=== PATIENT | female | born 1965 ===

== ENCOUNTER 2017-10-12 19:15 | Inpatient (IN) | payer MEDICAID ==
--- NOTE | 2017-10-12 19:30 | C.PDOC ---
History Of Present Illness Patient presents to the ER requesting detox from ETOH, last use [employer]. Patient states she drinks everyday. Denies suicidal ideation or homicidal ideation. Time Seen by Provider: 10/12/17 19:30 Chief Complaint (Nursing): Substance Abuse History Per: Patient History/Exam Limitations: no limitations Onset/Duration Of Symptoms: Hrs Current Symptoms Are (Timing): Still Present Suicide/Self Injury Attempted (Context): None Modifying Factor(s): Alcohol Severity: None Pain Scale Rating Of: 0 Associated Symptoms: denies: Depression, Suicidal Thoughts, Other (Homicidal ideation) Involuntary Hold By: None Recent travel outside of the [place]: No Additional History Per: Patient Past Medical History Reviewed: Historical Data, Nursing Documentation, Vital Signs Vital Signs: Last Vital Signs Temp 98.7 F 10/12/17 22:55 Pulse 82 10/12/17 22:55 Resp 20 10/12/17 22:55 BP 124/63 10/12/17 22:55 Pulse Ox 98 10/12/17 22:55 - Medical History PMH: Hyperthyroidism Surgical History: Back Surgery, Cholecystectomy Family History: States: No Known Family Hx - Social History Hx Alcohol Use: Yes Hx Substance Use: No Review Of Systems Constitutional: Negative for: Fever, Chills Eyes: Negative for: Vision Change ENT: Negative for: Throat Pain Cardiovascular: Negative for: Chest Pain, Palpitations Respiratory: Negative for: Cough, Shortness of Breath Gastrointestinal: Negative for: Nausea, Vomiting Genitourinary: Negative for: Dysuria Musculoskeletal: Negative for: Back Pain Skin: Negative for: Rash Neurological: Negative for: Weakness, Numbness Psych: Positive for: Anxiety. Negative for: Suicidal ideation Physical Exam - Physical Exam Appears: Non-toxic Skin: Warm, Dry Head: Normacephalic Eye(s): bilateral: Normal Inspection Oral Mucosa: Moist Neck: Supple Chest: Symmetrical, No Tenderness Cardiovascular: Rhythm Regular Respiratory: No Rales, No Rhonchi, No Wheezing Gastrointestinal/Abdominal: Soft, No Tenderness Rectal: Maroon Stool Back: Normal Inspection Extremity: Normal ROM Extremity: Bilateral: Atraumatic Pulses: Left Dorsalis Pedis: Normal, Right Dorsalis Pedis: Normal Neurological/Psych: Oriented x3, Normal Speech Gait: Steady ED Course And Treatment - Laboratory Results Result Diagrams: 10/12/17 19:45 10/12/17 19:45 O2 Sat by Pulse Oximetry: 97 (Room air) Pulse Ox Interpretation: Normal Progress Note: Blood work and urinalysis ordered. Crisis notified. Patient states she has very heavy periods, denies any rectal bleeding. Patient may benefit from a medical and ob/syn consult Disposition Discussed With : Alex Trinh Comment: accepted the pt on his service and took over the care at 1:23 AM Doctor Will See Patient In The: Hospital Counseled Patient/Family Regarding: Studies Performed, Diagnosis - Disposition Disposition: HOSPITALIZED Disposition Time: 19:30 Condition: FAIR Forms: [facility] ([place]) - POA Present On Arrival: None - Clinical Impression Clinical Impression: Alcohol abuse, Alcohol intoxication, Chronic anemia - Scribe Statement The provider has reviewed the documentation as recorded by the Scribmaxwell Ceja All medical record entries made by the Scribe were at my direction and personally dictated by me. I have reviewed the chart and agree that the record accurately reflects my personal performance of the history, physical exam, medical decision making, and the department course for this patient. I have also personally directed, reviewed, and agree with the discharge instructions and disposition. Decision To Admit - Pt Status Changed To: Hospital Disposition Of: Inpatient - Admit Certification Admit to Inpatient:: After my assessment, the patient will require hospitalization for at least two midnights. This is because of the severity of symptoms shown, intensity of services needed, and/or the medical risk in this patient being treated as an outpatient. - InPatient: Physician Admission Certification: I certify that this patient requires 2 or more midnights of care for the following reason:: After my assessment, the patient will require hospitalization for at least two midnights. This is because of the severity of symptoms shown, intensity of services needed, and/or the medical risk in this patient being treated as an outpatient. - . Bed Request Type: Detox Admitting Physician: Alex Trinh Patient Diagnosis: Alcohol abuse, Alcohol intoxication, Chronic anemia
[2017-10-12 19:53] LABS: BASO # 0.1 K/uL (0.0-0.2); BASO % 1.2 % (0.0-2.0); EOS # 0.1 K/uL (0.0-0.7); EOS % 1.4 % (0.0-4.0); HEMOGLOBIN 7.2 g/dL (11.0-16.0); LYMPH # 1.9 K/uL (1.0-4.3); LYMPH % 44.6 % (20.0-40.0); MEAN CORPUSCULAR HEMOGLOBIN 23.3 pg (27.0-31.0); MEAN CORPUSCULAR HGB CONC 31.1 g/dL (33.0-37.0); MEAN PLATELET VOLUME 7.7 fL (7.2-11.7); MONO # 0.4 K/uL (0.0-0.8); MONO % 10.2 % (0.0-10.0); NEUT # 1.8 K/uL (1.8-7.0); NEUT % 42.6 % (50.0-75.0); NRBC % 0.1 % (0.0-2.0); RBC 3.09 Mil/uL (3.80-5.20); RED CELL DISTRIBUTION WIDTH 24.5 % (11.5-14.5); WHITE BLOOD COUNT 4.2 K/uL (4.8-10.8)
[2017-10-12 19:56] LABS: HCG,QUALITATIVE URINE NEGATIVE (NEGATIVE)
[2017-10-12 19:58] LABS: SQUAMOUS EPITHIAL 2 /hpf (0-5); URINE BACTERIA RARE (<OCC); URINE BILIRUBIN NEGATIVE (NEGATIVE); URINE BLOOD NEGATIVE (NEGATIVE); URINE CLARITY Clear (Clear); URINE COLOR Yellow (YELLOW); URINE GLUCOSE (UA) NORMAL (Normal); URINE LEUKOCYTE ESTERASE 2+ Leu/uL (Negative); URINE PROTEIN 2+ mg/dL (NEGATIVE); URINE UROBILINOGEN NORMAL mg/dL (0.2-1.0)
[2017-10-12 20:11] LABS: BARBITURATES, UR NEGATIVE (NEGATIVE); BENZODIAZEPINES, UR NEGATIVE (NEGATIVE); OPIATES, UR NEGATIVE (NEGATIVE); PHENCYCLIDINE, UR NEGATIVE (NEGATIVE)
[2017-10-12 20:14] LABS: ALB/GLOB RATIO 1.2 (1.0-2.1); ALT/SGPT 26 U/L (9-52); AST/SGOT 37 U/L (14-36); BLOOD UREA NITROGEN 12 mg/dL (7-17); CALCIUM 8.3 mg/dl (8.6-10.4); GFR AFRICAN-AMERICAN > 60; GFR NON-AFRICAN AMERICAN > 60
[2017-10-12] MEDS ORDERED: Sodium Chloride 0.9% 1,000 ML IV ONE (23:17)
--- NOTE | 2017-10-13 02:45 | PCM.BM ---
<Filomena Guerrier - Last Filed: 10/13/17 02:44> Treatment Plan Problems - Problems identified on initial assessmt Ineffective Coping Skills Date Initiated: 10/13/17 Time Initiated: 02:45 Assessment reference: NA Status: Active Treatment assets and liabiliti Patient Assests: ADL independent Patient Liabilities: substance abuse - Milieu Protocol Maintain good personal hygiene: daily Encourage regular showers, daily Remind patient to perform daily oral care, other Assist patient to perform ADL's Maintain personal safety: every shift Educate patient to report safety concerns to staff, every shift Monitor environment for contraband/sharps Medication safety: Monitor for expected outcome, potential side effects: every shift, Assess barriers to learning: every shift, Assess readiness for medication education: every shift <Alex Trinh - Last Filed: 10/13/17 22:15> - Diagnosis (1) Alcohol use disorder, severe, dependence Status: Acute Interventions: 10/13/17 22:15 * Assess 7x/week regarding severity of withdrawal * Educate regarding risks, benefits, side effects and alternatives of medications * Use Motivational Interviewing for abstinence * Use CBT for relapse prevention * Medication management for withdrawal symptoms * Encourage medication assisted treatment *
[2017-10-13] MEDS: Multiple Vitamins Tab PO SCH (10:35)
[2017-10-13] MEDS: Pantoprazole 40 mg EC Tab PO SCH (10:35)
[2017-10-13] MEDS: Levothyroxine 150 MCG TAB PO SCH (11:13)
--- NOTE | 2017-10-13 14:13 | PCM.PSYCH ---
Initial Psychiatric Evaluation - Initial Psychiatric Evaluation Type of Admission: Voluntary Legal Status: Capacity Chief Complaint (in patient's own words): "Alcohol" History of Present Illness and Precipitating Events: The patient is a 52 year old female who is unemployed. She came to [facility] ED requesting detox from alcohol. The patient states that she drinks 1 bottle of vodka a day and that her drinking has gotten worse over the last month. She states that she has also been depressed over the last two- three weeks. 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 She has never attended a detox or rehab program for alcohol. The patient states that she attended detox for heroin abuse in [place] however she has been clean for 11 years. Smokes 1/2 ppd cigarettes She has wdw symptoms Past Medical history: hypothyroidism, gastritis Family history: denies Social: [place] two roommates, single Past psychiatric history: denies Current Medications: Active Medications Generic Name Dose Route Start Last Admin Trade Name Freq PRN Reason Stop Dose Admin Acetaminophen 650 mg 10/13/17 10:19 Tylenol 325mg Tab PO Q6 PRN Pain, moderate (4-7) Chlordiazepoxide 25 mg 10/13/17 02:29 10/13/17 02:36 Librium PO 25 mg Q4H PRN Administration Alcohol Withdrawal Chlordiazepoxide 25 mg 10/13/17 06:00 10/13/17 11:13 Librium PO 10/17/17 05:59 25 mg Q6H GUILHERME Administration Taper Clonidine HCl 0.1 mg 10/13/17 02:30 10/13/17 10:35 Catapres PO 0.1 mg Q6 PRN Administration Symptoms of alcohol withdrawl Folic Acid 1 mg 10/13/17 10:30 10/13/17 10:35 Folic Acid PO 1 mg DAILY GUILHERME Administration Hydroxyzine HCl 25 mg 10/13/17 02:25 Atarax PO Q6 PRN Anxiety Levothyroxine Sodium 150 mcg 10/13/17 10:30 10/13/17 11:13 Synthroid PO 150 mcg DAILY@0630 GUILHERME Administration Multivitamins 1 tab 10/13/17 10:30 10/13/17 10:35 Hexavitamin PO 1 tab DAILY GUILHERME Administration Pantoprazole Sodium 40 mg 10/13/17 10:30 10/13/17 10:35 Protonix Ec Tab PO 40 mg DAILY GUILHERME Administration Thiamine HCl 100 mg 10/13/17 10:30 10/13/17 10:35 Vitamin B1 Tab PO 100 mg DAILY GUILHERME Administration Trazodone HCl 50 mg 10/13/17 22:00 Desyrel PO HS PRN Insomnia Past Psychiatric History - Past Psychiatric History Previous Treatment History: None Pertinent Medical Hx (Current Medical&Sleep Prob, Allergies): Allergies Allergy/AdvReac Type Severity Reaction Status Date / Time No Known Allergies Allergy Verified 10/12/17 19:24 Levothyroxine Sodium 150 mcg PO DAILY 10/12/17 Omeprazole 20 mg PO DAILY 10/12/17 Review of Systems - Neurological Neurological: Tremor - Psychiatric Psychiatric: Abnormal Sleep Pattern, Anxiety, Depression, Difficulty Concentrating, Suicidal Ideation. absent: Hallucinations, Homicidal Ideation Mental Status Examination - Personal Presentation Personal Presentation: Looks stated age - Affect Affect: Constricted - Motor Activity Motor Activity: Calm - Reliability in Providing Information Reliability in Providing Information: Good - Speech Speech: Organized - Mood Mood: Anxious - Formal Thought Process Formal Thought Process: No Impairment - Cognitive Functions Orientation: Person, Place, Situation, Time Sensorium: Alert Attention/Concentration: Attentive Estimate of Intelligence: Average Judgement: Intact, as evidence by: Insight regarding need for hospitalization Memory: Recent intact, as evidence by: Ability to recall events of the day, Remote intact, as evidenced by: Abilit to recall sig. life events - Risk Risk: Withdrawal, Diminished functioning - Strength & Assets Inventory Strength & Assets Inventory: Cooperative - Limitations Limitations: Living alone DSM 5 DX - DSM 5 DSM 5 Diagnosis: Alcohol withdrawal Alcohol use d/o - severe Depressive d/o - unspecified - Recommended/Plan of Treatment Treatment Recommendations and Plan of Treatment: Taper with Librium remeron for depression Gabapentin for augmentation if needed As needed medications All risks, benefits and alternatives of the meds discussed, and the pt agreed and understood. Attend groups and activities Supportive therapy and psychoeducation [place] for abstinence CBT for relapse prevention and depression Encourage MAT Refer to rehab or IOP, and self-help groups Multivitamins/Thiamine/Folate Smoking cessation with [place] Nicotine patch if needed Consider antidepressants following alcohol detox Monitor for symptoms of depression 34 min Projected ELOS: 5-6 days Prognosis: good w treatment - Smoking Cessation Smoking Cessation Initiated: Yes
[2017-10-14] MEDS: Levothyroxine 150 MCG TAB PO SCH (06:44)
[2017-10-14] MEDS: Pantoprazole 40 mg EC Tab PO SCH (09:59)
[2017-10-14] MEDS: Multiple Vitamins Tab PO SCH (09:59)
--- NOTE | 2017-10-14 12:31 | PCM.PYCHPN ---
Psychiatric Progress Note - Psychiatric Progress Note Patient seen today, length of contact: 16 min Patient Chief Complaint: "Tired" Problems Identified/Issues Discussed: The pt is seen, chart reviewed, case discussed with staff. Support and psychoeducation given, CBT and ID used briefly No new symptoms reported, improving slowly and needs more time No SEs from medications, risks discussed. After care discussed Medication Change: Yes (detox changes daily) Medical Record Reviewed: Yes Mental Status Examination - Cognitive Function Orientation: Person, Place, Situation, Time Memory: Intact Attention: WNL Concentration: Poor Association: WNL Fund of Knowledge: WNL - Mood Mood: Anxious - Affect Affect: Constricted - Speech Speech: Appropriate - Formal Thought Process Formal Thought Process: No Impairment - Suicidal Ideation Suicidal Ideation: No - Homicidal Ideation Homicidal Ideation: No Goal/Treatment Plan - Goal/Treatment Plan Need for Continued Stay: Discharge may exacerbated symptoms, Severe functional impairment Progress Toward Problem(s) and Goals/Treatment Plan: Taper with Librium remeron for depression Gabapentin for augmentation if needed As needed medications All risks, benefits and alternatives of the meds discussed, and the pt agreed and understood. Attend groups and activities Supportive therapy and psychoeducation [place] for abstinence CBT for relapse prevention and depression Encourage MAT Refer to rehab or IOP, and self-help groups Multivitamins/Thiamine/Folate Smoking cessation with ID Nicotine patch if needed Consider antidepressants following alcohol detox Monitor for symptoms of depression - Smoking Cessation Smoking Cessation Initiated: Yes
[2017-10-14 12:39] LABS: BLOOD UREA NITROGEN 15 mg/dL (7-17); CALCIUM 9.1 mg/dl (8.6-10.4); GFR AFRICAN-AMERICAN > 60; GFR NON-AFRICAN AMERICAN > 60
[2017-10-15] MEDS: Levothyroxine 150 MCG TAB PO SCH (06:13)
[2017-10-15] MEDS: Pantoprazole 40 mg EC Tab PO SCH (09:37)
[2017-10-15] MEDS: Multiple Vitamins Tab PO SCH (09:38)
--- NOTE | 2017-10-16 00:15 | PCM.PYCHPN ---
Psychiatric Progress Note - Psychiatric Progress Note Patient seen today, length of contact: 16 min Patient Chief Complaint: "Anxious today" Problems Identified/Issues Discussed: The pt is seen, chart reviewed, case discussed with staff. The pt is compliant with medications and reports no side-effects. Symptoms are improving but needs more time to stabilize. Pt attends groups and activities. Support given, psycho-education provided. After care discussed. Medication Change: Yes (detox changes daily) Medical Record Reviewed: Yes Mental Status Examination - Cognitive Function Orientation: Person, Place, Situation, Time Memory: Intact Attention: WNL Concentration: Poor Association: WNL Fund of Knowledge: WNL - Mood Mood: Anxious - Affect Affect: Constricted - Speech Speech: Appropriate - Formal Thought Process Formal Thought Process: No Impairment - Suicidal Ideation Suicidal Ideation: No - Homicidal Ideation Homicidal Ideation: No Goal/Treatment Plan - Goal/Treatment Plan Need for Continued Stay: Discharge may exacerbated symptoms, Severe functional impairment Progress Toward Problem(s) and Goals/Treatment Plan: Taper with Librium remeron for depression Gabapentin for augmentation if needed As needed medications All risks, benefits and alternatives of the meds discussed, and the pt agreed and understood. Attend groups and activities Supportive therapy and psychoeducation [place] for abstinence CBT for relapse prevention and depression Encourage MAT Refer to rehab or IOP, and self-help groups Multivitamins/Thiamine/Folate Smoking cessation with [place] Nicotine patch if needed Consider antidepressants following alcohol detox Monitor for symptoms of depression Estimated Date of D/C: 10/17/17
[2017-10-16] MEDS: Levothyroxine 150 MCG TAB PO SCH (06:44)
[2017-10-16] MEDS: Pantoprazole 40 mg EC Tab PO SCH (09:51)
[2017-10-16] MEDS: Multiple Vitamins Tab PO SCH (09:51)
--- NOTE | 2017-10-16 13:28 | PCM.PYCHPN ---
Psychiatric Progress Note - Psychiatric Progress Note Patient seen today, length of contact: 17 min Patient Chief Complaint: "Better" Problems Identified/Issues Discussed: The pt is seen, chart reviewed, case discussed with staff. Support and psychoeducation given, CBT and CO used briefly Seen with counselors No new symptoms reported, improving slowly and needs more time No SEs from medications, risks discussed. After care discussed Medication Change: Yes (detox changes daily) Medical Record Reviewed: Yes Mental Status Examination - Cognitive Function Orientation: Person, Place, Situation, Time Memory: Intact Attention: WNL Concentration: Poor Association: WNL Fund of Knowledge: WNL - Mood Mood: Anxious - Affect Affect: Constricted - Speech Speech: Appropriate - Formal Thought Process Formal Thought Process: No Impairment - Suicidal Ideation Suicidal Ideation: No - Homicidal Ideation Homicidal Ideation: No Goal/Treatment Plan - Goal/Treatment Plan Need for Continued Stay: Discharge may exacerbated symptoms, Severe functional impairment Progress Toward Problem(s) and Goals/Treatment Plan: Taper with Librium remeron for depression Gabapentin for augmentation if needed As needed medications All risks, benefits and alternatives of the meds discussed, and the pt agreed and understood. Attend groups and activities Supportive therapy and psychoeducation [place] for abstinence CBT for relapse prevention and depression Encourage MAT Refer to rehab or IOP, and self-help groups Multivitamins/Thiamine/Folate Smoking cessation with [place] Nicotine patch if needed Consider antidepressants following alcohol detox Monitor for symptoms of depression Estimated Date of D/C: 10/17/17
[2017-10-17 06:13] VITALS: PULSE 81
[2017-10-17] MEDS: Levothyroxine 150 MCG TAB PO SCH (06:42)
--- NOTE | 2017-10-17 08:53 | PCM.PYCHDC ---
Mental Status Examination - Mental Status Examination Orientation: Person, Place, Situation, Time Memory: Intact Mood: Anxious Affect: Constricted Speech: Appropriate Attention: WNL Concentration: WNL Association: WNL Fund of Knowledge: WNL Formal Thought Process: No Impairment Suicidal Ideation: No Current Homicidal Ideation?: No Discharge Summary - Discharge Note Reason for Hospitalization: Alcohol detox Consultations:: List each consultation separately and include: 1. Reason for request. 2. Findings. 3. Follow-up Summary of Hospital Course include:: 1. Description of specific treatment plan utilized for patients during their course of treatmen. 2. Summarize the time- course for resolution of acute symptoms and/or regressed behaviors. 3. Describe issues identified and worked on during hospitalization. 4. Describe medication utilized. 5. Describe medical problems identified and treated. 6. Reassessment of suicide risk Summary of Hospital Course: The patient is a 52 year old female who is unemployed. On admission: She came to [facility] ED requesting detox from alcohol. The patient states that she drinks 1 bottle of vodka a day and that her drinking has gotten worse over the last month. She states that she has also been depressed over the last two- three weeks. 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 She has never attended a detox or rehab program for alcohol. The patient states that she attended detox for heroin abuse in [place] however she has been clean for 11 years. Smokes 1/2 ppd cigarettes She has wdw symptoms Past Medical history: hypothyroidism, gastritis Family history: denies Social: lives in [place] with two roommates, single Past psychiatric history: denies Hospital course: The pt was admitted and started on treatment with psychotherapy, support, psychoeducation and medications. [place] and CBT used. The pt attended groups and activities, as well as milieu therapy. All the risks and benefits of medications are discussed and the patient understood and agreed. The pt improved with the treatments provided. After care discussed with the patient. She will go to [place] [facility]. - Final Diagnosis (DSM 5) Condition upon Discharge: IMPROVED DSM 5: Alcohol withdrawal Alcohol use d/o - severe Depressive d/o - unspecified Disposition: HOME/ ROUTINE Follow-up Treatment Plan: Continue below medications after discharge. Follow after care plan as discussed. Use relapse prevention skills Return to ER or call 911 if suicidal, homicidal or symptoms relapse. Stay away from stress, alcohol and drugs. See primary doctor regularly and get labs. Prescriptions/Medication Reconciliation: Docusate [Colace] 100 mg PO DAILY #30 cap Ferrous Sulfate [Feosol] 325 mg PO TID #90 tab hydrOXYzine HCl [Atarax] 25 mg PO DAILY PRN #30 tab PRN Reason: Anxiety Levothyroxine Sodium 150 mcg PO DAILY #30 tablet Mirtazapine [Remeron] 15 mg PO HS #30 tab Pantoprazole [Protonix EC Tab] 40 mg PO DAILY #30 ect traZODone [Desyrel] 100 mg PO HS PRN #30 tab PRN Reason: Insomnia - Smoking Cessation Smoking Cessation Medication prescribed: No - Antipsychotic Medications Pt discharged on 2 or more routine antipsychotic medications: No
[2017-10-17] MEDS: Multiple Vitamins Tab PO SCH (09:21)
[2017-10-17] MEDS: Pantoprazole 40 mg EC Tab PO SCH (09:21)
[2017-10-17 11:29] VITALS: BP 118/77; RESP 20; TEMP 98.4; O2SAT 99
== END 2017-10-17 10:30 | disposition home or self-care (01) | DRG 751 ==
LOC: C.ER 19:15 → C.7D 10-13 01:22
PROVIDERS: ADMIT Psychiatry & Neurology Psychiatry; ATTEND Psychiatry & Neurology Psychiatry
PROC: HZ2ZZZZ Detoxification Services for Substance Abuse Treatment (ICD-10-PCS; principal; 2017-10-13)
PROC: HZ46ZZZ Group Counseling for Substance Abuse Treatment, Psychoeducation (ICD-10-PCS; 2017-10-13)
PROC: HZ59ZZZ Individual Psychotherapy for Substance Abuse Treatment, Supportive (ICD-10-PCS; 2017-10-13)
PROC: GZ3ZZZZ Medication Management (ICD-10-PCS; 2017-10-13)
PROC: HZ80ZZZ Medication Management for Substance Abuse Treatment, Nicotine Replacement (ICD-10-PCS; 2017-10-13)
DX: F10.230 Alcohol dependence with withdrawal, uncomplicated (principal); F10.220 Alcohol dependence with intoxication, uncomplicated; F32.9 Major depressive disorder, single episode, unspecified; F17.210 Nicotine dependence, cigarettes, uncomplicated; Y90.8 Blood alcohol level of 240 mg/100 ml or more; D64.9 Anemia, unspecified; E03.9 Hypothyroidism, unspecified